=== PATIENT | female | born 1940 | race Caucasian/White ===

== ENCOUNTER → 2024-04-26 11:07 | Outpatient (REF) | payer OTHER, SELFPAY | LOC: MRI 11:07 | PROVIDERS: ATTENDING PHYSICIAN Specialist; FAMILY PHYSICIAN Family Medicine | DX: M51.36 Other intervertebral disc degeneration, lumbar region (principal); M50.10 Cervical disc disorder with radiculopathy, unspecified cervical region | CPT/HCPCS: 72141; 72148 ==

== ENCOUNTER 2025-04-25 10:42 | Emergency (ER) | payer OTHER, SELFPAY ==
[2025-04-25 10:45] VITALS: BMI 19.3
--- NOTE | 2025-04-25 10:53 | ED.GENMED ---
History of Present Illness
General
Chief Complaint: Breathing Problem
Time Seen by Provider: 04/25/25 10:44
History of Present Illness
History of Present Illness:
84-year-old female with history of hypertension, hyperlipidemia, [id number] diabetes, and chronic kidney disease presents to the emergency department for evaluation of hypoxia. Noted to be hypoxic on room air for her staff at [facility]
nursing facility, EMS reports room air saturations in the upper 70s to low 80s. Placed her on 15 L nonrebreather with rapid improvement in overall cyanosis and work of breathing. The patient denies any complaints at this time. No reported recent
fevers, chest pain, or coughing. No leg swelling.
Past History
Past History
ED Past Medical History: Cancer (Ovarian), GERD, HTN, Hypercholesterolemia, NIDDM, Renal failure (No dialysis), Psychiatric (Anxiety, Panic disorder, depression. PTSD) and Other (Arthritis, stomach ulcers, Colitis, Spinal stenosis)
ED Past Surgical History: Appendectomy, (X4), Gynecological (Hysterectomy) and Orthopedic (Tushar hand surgery)
Social History
Tobacco: Former smoker
Alcohol: None
Drug: None
Personal:
Living: assisted living
Employment: Retired
Family History
Family History: Other (Noncontributory)
Review of Systems
Review of Systems
Allergies reviewed?: Yes
All Other Systems: ROS reviewed and negative except as documented in HPI and ROS
Phy Exam
Physical Exam
Physical Exam:
GEN: Well appearing, NAD, WDWN
HEENT: Oral mucosa moist, no scleral icterus
Cardiac: Regular rate and rhythm, no murmur
Lung: No respiratory distress, no tachypnea, lungs clear globally to auscultation
MSK: No gross deformity or injuries, no lower extremity edema
Skin: Good color, no pallor or jaundice, no rashes
Neuro: AO x3, moves all extremities freely
Psych: Calm, cooperative
Scores
Heart Failure Risk
Heart Failure Risk Score: Not Applicable
Course
Orders/Labs/Results
Orders:
Orders
04/25/25 10:45
EKG [Electrocardiogram (*1)] Urgent
Reason for Study: Chest Pain
EKG- Treatment ONCE
CR Chest - 2 Views Urgent
Comment:
Reason For Exam: suspected infection
04/25/25 11:00
COVID-19 Antigen Urgent
Source: Nasal Swab
Complete Blood Count/With Diff Urgent
Comprehensive Metabolic Panel Urgent
Influenza A+B Rapid Molecular Urgent
DALILA Source: Nasal Swab
Specimen Description:
04/25/25 11:46
0.9% Sodium Chloride 1000 ml [Nss] 5,000 ml IV BOLUS
04/25/25 11:55
0.9% Sodium Chloride 500 ml [Nss] 500 ml IV BOLUS
04/25/25 13:47
Tramadol HCl [Ultram] 50 mg PO NOW STA
Abnormal Lab Results
04/25/25 04/25/25
11:00 14:07
MCHC 32.7 L g/dL
(33.0-37.0)
MPV 11.3 H fL
(7.4-10.4)
BUN 39 H mg/dl
(7-17)
Creatinine 1.3 H mg/dL
(0.6-1.0)
Glucose 157 H mg/dl
(70-99)
Calcium 11.4 H mg/dl
(8.4-10.2)
AST 48 H U/L
(14-36)
POC Glucose 130 H mg/dl
(70-99)
04/25/25 11:00
04/25/25 11:00
Vital Signs
Initial and Last Documented VS:
Initial Vital Signs
Pulse Ox
99
04/25/25 10:45
Last Documented Vital Signs
Temp Pulse Resp BP Pulse Ox
98.0 F 109 23 123/77 100
04/25/25 10:46 04/25/25 13:30 04/25/25 13:30 04/25/25 13:00 04/25/25 13:45
MDM/Problems Addressed
MDM/Problems Addressed:
Patient was gradually weaned down on oxygen and ultimately was able to be weaned to room air with no hypoxia. She remained stable in the ED for the majority of his stay with no breathing difficulty however at 1 point did appear to have an anxiety
reaction with tachypnea and hypercapnia however this resolved. Workup was grossly unremarkable
Comment
Comment:
EKG independently interpreted by me shows normal sinus rhythm at a rate of [address] changes concerning for ischemia
*Pulse Oximetry
SaO2: 98
Oxygen Mode of Delivery: Non-rebreather mask
Patient hypoxic: no
*Critical Care Note
Total Time (30-74mins, 75-104mins- exclusive of procedures): Not Applicable
ED Attending Note
-
Portions of this chart may have been created with voice recognition software.� Occasional wrong word or��sound alike� substitutions may have occurred due to the inherent limitations of voice recognition software.
Discharge Plan
Departure
Patient Disposition: Home (Routine Discharge)
Date of Disposition: 04/25/25
Time of Disposition: 12:30
Patient with high blood pressure during this ER visit?: No
Discharge Problem:
Hypoxia
Prescriptions:
No Action
esomeprazole magnesium [Nexium] 40 MG capsule,delayed release(DR/EC)
40 mg PO DAILY@0630
fish oil-dha-epa 1 EACH capsule
1 ea PO DAILY
fenofibrate nanocrystallized 145 MG tablet
145 mg PO HS
cholecalciferol (vitamin D3) 2,000 UNITS tablet
2,000 units PO DAILY
magnesium oxide 400 MG capsule
400 mg PO DAILY
[id number] serr [Osteo Bi-Flex (5-Loxin)] 1 EACH tablet
2 ea PO DAILY
buspirone 5 MG tablet
5 mg PO BIDPRN PRN (Reason: panic)
sumatriptan succinate 50 MG tablet
50 mg PO DAILYPRN PRN (Reason: migraine)
amlodipine 5 MG tablet
5 mg PO DAILY
folic acid 0.4 MG tablet
0.8 mg PO DAILY
acetaminophen [Tylenol Extra Strength] 500 MG tablet
1,000 mg PO Q6HPRN PRN (Reason: mild pain)
ferrous sulfate [FeroSul] 325 MG tablet
325 mg PO DAILY@1100
metoprolol succinate 25 MG tablet extended release 24 hr
25 mg PO HS
duloxetine 60 MG capsule,delayed release(DR/EC)
60 mg PO DAILY
ondansetron HCl [Zofran] 8 MG tablet
8 mg PO DAILYPRN PRN (Reason: nausea)
gabapentin 100 MG capsule
200 mg PO TID
pioglitazone 30 MG tablet
30 mg PO DAILY
multivitamin Tablet
1 tab PO DAILY
buspirone 5 mg Tablet
5 mg PO BID
guaifenesin [Siltussin SA] 100 mg/5 mL Liquid
100 mg PO Q6HPRN PRN (Reason: cough)
repaglinide 0.5 mg Tablet
0.5 mg PO AC
levothyroxine 50 mcg Tablet
50 mcg PO DAILY AT 0700
cefdinir 300 mg capsule
300 mg PO Q12H 4 Days Qty: 8 0RF
azithromycin 250 mg tablet
250 mg PO DAILY 3 Days Qty: 3 0RF
Referrals:
Santiago Lancaster MD [Family Provider, Family Practice]
Interventions
Interventions:
ED- Cardiac Assessment Last Done: 04/25/25 10:45
ED- Pulmonary Assessment Last Done: 04/25/25 10:45
Discharge Date and Time
Print Language: PASHTO
[2025-04-25 11:04] VITALS: BP 123/97
[2025-04-25 11:21] LABS: Hematocrit 37.6 % (37.0-47.0); Hemoglobin 12.3 g/dL (12.0-16.0); Mean Corp Hgb Conc. 32.7 g/dL (33.0-37.0); Mean Corpuscular Volume 89.5 fL (81.0-99.0); Nucleated Red Blood Cells % 0 %; Platelet Count 308 10^3/uL (130-400); Red Cell Dist. Width 13.8 % (11.5-14.5)
[2025-04-25 11:36] LABS: ALT (SGPT) 23 U/L (0-35); AST (SGOT) 48 U/L (14-36); Albumin 4.5 g/dl (3.5-5.0); Alkaline Phosphatase 55 U/L (38-126); Blood Urea Nitrogen 39 mg/dl (7-17); Calcium 11.4 mg/dl (8.4-10.2); Carbon Dioxide 23 mmol/L (22-30); Chloride 106 mmol/L (98-107); Estimated Creatinine Clearance 22 ml/min; Glucose 157 mg/dl (70-99); Potassium 5.0 mmol/L (3.5-5.1); Sodium 139 mmol/L (135-145); Total Protein 7.3 g/dl (6.3-8.2); eGFR 40.55
[2025-04-25 11:37] LABS: COVID-19 Antigen Negative (Negative)
[2025-04-25 12:00] VITALS: BP 126/85
[2025-04-25] MEDS: NSS 500 IV (12:11)
[2025-04-25 13:00] VITALS: BP 123/77
[2025-04-25] MEDS: ULTRAM 50 MG PO (13:53)
[2025-04-25 14:09] LABS: Glucose - Point of Care 130 mg/dl (70-99)
== END 2025-04-25 16:30 | disposition home or self-care (01) ==
LOC: EMR 10:42
PROVIDERS: Physician Assistant; EMERGENCY PHYSICIAN Student in an Organized Health Care Education/Training Program; FAMILY PHYSICIAN Family Medicine
DX: R09.02 Hypoxemia (principal); N18.9 Chronic kidney disease, unspecified; E11.22 Type 2 diabetes mellitus with diabetic chronic kidney disease; Z11.52 Encounter for screening for COVID-19; E78.00 Pure hypercholesterolemia, unspecified; I12.9 Hypertensive chronic kidney disease with stage 1 through stage 4 chronic kidney disease, or unspecified chronic kidney disease; Z87.891 Personal history of nicotine dependence
CPT/HCPCS: 99285; 96360; 71046; 80053; 82962; 85025; 87502; 87811; 93005

== ENCOUNTER 2025-09-08 07:33 | Emergency (ER) | payer OTHER, SELFPAY ==
[2025-09-08 07:44] VITALS: BP 82/66
--- NOTE | 2025-09-08 08:52 | ED.GENMED ---
History of Present Illness
General
Chief Complaint: Fall
Source: patient, ambulance crew and custodial
Exam Limitations: none
Time Seen by Provider: 09/08/25 07:59
Nursing documentation reviewed up to this point in time: agreed with
History of Present Illness
History of Present Illness:
85-year-old female presenting to the emergency department after falling this morning the right side of her face did not lose consciousness denies any significant symptoms at this point other than right-sided head discomfort. Denies any chest pain
shortness of breath.
Past History
Past History
ED Past Medical History: Cancer (Ovarian), GERD, HTN, Hypercholesterolemia, NIDDM, Renal failure (No dialysis), Psychiatric (Anxiety, Panic disorder, depression. PTSD) and Other (Arthritis, stomach ulcers, Colitis, Spinal stenosis)
ED Past Surgical History: Appendectomy, (X4), Gynecological (Hysterectomy) and Orthopedic (Tushar hand surgery)
Social History
Tobacco: Former smoker
Alcohol: None
Drug: None
Personal:
Living: assisted living
Employment: Retired
Family History
Family History: Other (Noncontributory)
Review of Systems
Review of Systems
Allergies reviewed?: Yes
All Other Systems: ROS reviewed and negative except as documented in HPI and ROS
Phy Exam
Physical Exam
Physical Exam:
GENERAL: Alert , in no apparent distress
EYE: pupils equal and reactive
NECK: Supple, no significant adenopathy.
ENT: Superficial abrasion to the right lateral eyebrow o/p clr, mmm.
CARDIAC: Regular rate and rhythm .
LUNGS: Clear breath sounds bilaterally, no acute respiratory distress, no wheezes/rales/rhonchi
ABDOMEN: Soft, without focal tenderness, no r/g, no cvat
NEUROLOGICAL: Alert and oriented, no focal neuro deficits
SKIN: Warm and dry, skin intact.
MUSCULOSKELETAL: No edema, well perfused.
PSYCH: Normal and appropriate interaction.
Course
Orders/Labs/Results
Orders:
Orders
09/08/25 08:32
CT Cervical Spine W/o Iv Contr Urgent
Comment:
Reason For Exam: fall hit head
CT Head W/o Iv Contrast Urgent
Comment:
Reason For Exam: fall hit head
09/08/25 08:55
Ankle, Right 3 view CR [CR Ankle - Right Min 3 Views *] Urgent
Comment:
Reason For Exam: ankle pain after fall
Vital Signs
Initial and Last Documented VS:
Initial Vital Signs
Temp Pulse Resp BP Pulse Ox
97.7 F 103 21 82/66 99
09/08/25 07:44 09/08/25 07:44 09/08/25 07:44 09/08/25 07:44 09/08/25 07:44
Last Documented Vital Signs
Temp Pulse Resp BP Pulse Ox
97.7 F 104 29 137/125 98
09/08/25 07:44 09/08/25 11:00 09/08/25 11:00 09/08/25 10:26 09/08/25 11:00
MDM/Problems Addressed
MDM/Problems Addressed:
85-year-old female presenting after a fall. Abrasion to the right lateral eyebrow region otherwise denies any symptoms at this time other than mild right ankle pain. CT scan without emergent findings x-ray without emergent findings of the ankle.
Patient initially was tachycardic but improved without specific treatment here. She claims she would like to leave at this point feels well. Patient was discharged stable condition. Return precautions given.
*Pulse Oximetry
SaO2: 95
Nasal Cannula flow liters per minute: 3
Patient hypoxic: no (98)
*Critical Care Note
Total Time (30-74mins, 75-104mins- exclusive of procedures): Not Applicable
ED Attending Note
-
Portions of this chart may have been created with voice recognition software.� Occasional wrong word or��sound alike� substitutions may have occurred due to the inherent limitations of voice recognition software.
Discharge Plan
Departure
Patient Disposition: Home (Routine Discharge)
Date of Disposition: 09/08/25
Time of Disposition: 11:32
Patient with high blood pressure during this ER visit?: No
Condition: Good
Covid-19: Not Applicable
Discharge Problem:
Fall
Instructions: Preventing falls in adults
Prescriptions:
No Action
esomeprazole magnesium [Nexium] 40 MG capsule,delayed release(DR/EC)
40 mg PO DAILY
fish oil-dha-epa 1 EACH capsule
1 cap PO DAILY
fenofibrate nanocrystallized 145 MG tablet
145 mg PO DAILY
cholecalciferol (vitamin D3) 2,000 UNITS tablet
2,000 units PO DAILY
magnesium oxide 400 MG capsule
400 mg PO DAILY
amlodipine 5 MG tablet
5 mg PO DAILY
acetaminophen [Tylenol Extra Strength] 500 MG tablet
1,000 mg PO Q6HPRN PRN (Reason: mild pain)
ferrous sulfate [FeroSul] 325 MG tablet
325 mg PO DAILY@1100
duloxetine 60 MG capsule,delayed release(DR/EC)
60 mg PO DAILY
gabapentin 100 MG capsule
200 mg PO TID
pioglitazone 30 MG tablet
30 mg PO DAILY
multivitamin [Daily Value] Tablet
1 tab PO DAILY
buspirone 5 mg Tablet
5 mg PO BID
repaglinide 0.5 mg Tablet
0.5 mg PO AC
levothyroxine 50 mcg Tablet
50 mcg PO DAILY
tramadol-acetaminophen 37.5-325 mg Tablet
1 tab PO DAILYPRN PRN (Reason: moderate pain)
ondansetron HCl [Zofran] 8 mg Tablet
8 mg PO DAILYPRN PRN (Reason: nausea)
sumatriptan succinate [Imitrex] 50 mg Tablet
0 mg PO .COMPLEX
Rx Instructions:
take 1 tab at onset of headache; if no relief may repeat 1 tab after at least 2 hrs; max = 4 tabs/24 hr
guaifenesin [Siltussin SA] 100 mg/5 mL Liquid
100 mg PO Q6HPRN PRN (Reason: cough)
folic acid 1 mg Tablet
1 mg PO DAILY
diphenhydramine-acetaminophen [Acetaminophen PM] 25-500 mg Tablet
1 tab PO HSPRN PRN (Reason: sleep)
metoprolol tartrate 25 mg Tablet
25 mg PO DAILY
Osteo Bi-Flex Triple Strength 750 mg-644 mg- 30 mg-1 mg Tablet
2 tab PO DAILY
Referrals:
Santiago Lancaster MD [Family Provider, Family Practice]
Activity Restrictions/Additional Instructions:
You came to the emergency department today after a fall. Here your reassuring assessment with normal head CT and ankle x-ray. You had Dermabond placed on your cut to the right side of your forehead. Please allow this to follow-up over the next
week or so. Return for any worsening, new or concerning symptoms.
Interventions
Interventions:
*Risk Screen - Suicide Last Done: 09/08/25 07:44
*General Assessment Last Done: 09/08/25 07:44
*Neglect/Abuse Screening Last Done: 09/08/25 07:44
*ED COVID-19 Vaccine History Last Done: 09/08/25 08:01
*ED Influenza Vaccine History Last Done: 09/08/25 08:01
[facility] Fall Risk Assessment Tool Last Done: 09/08/25 10:12
ED-Musculoskeletal Assessment Last Done: 09/08/25 08:01
ED- Neurological Assessment Last Done: 09/08/25 08:01
ED-Skin Assessment Last Done: 09/08/25 08:01
Discharge Date and Time
Print Language: CROATIAN
[2025-09-08 10:26] VITALS: BP 137/125
[2025-09-08 11:01] VITALS: BP 115/79
[2025-09-08 12:00] VITALS: BP 105/60
== END 2025-09-08 13:09 | disposition home or self-care (01) ==
LOC: EMR 07:33
PROVIDERS: EMERGENCY PHYSICIAN Student in an Organized Health Care Education/Training Program; FAMILY PHYSICIAN Family Medicine
DX: Z04.3 Encounter for examination and observation following other accident (principal); W19.XXXA Unspecified fall, initial encounter; Y92.129 Unspecified place in nursing home as the place of occurrence of the external cause; E11.9 Type 2 diabetes mellitus without complications; I10 Essential (primary) hypertension; E78.00 Pure hypercholesterolemia, unspecified; K21.9 Gastro-esophageal reflux disease without esophagitis; F41.9 Anxiety disorder, unspecified; F32.A Depression, unspecified; F41.0 Panic disorder [episodic paroxysmal anxiety]; F43.10 Post-traumatic stress disorder, unspecified; M19.90 Unspecified osteoarthritis, unspecified site; M48.00 Spinal stenosis, site unspecified; Z79.84 Long term (current) use of oral hypoglycemic drugs; Z85.43 Personal history of malignant neoplasm of ovary; Z90.710 Acquired absence of both cervix and uterus; Z87.891 Personal history of nicotine dependence
CPT/HCPCS: 99284; 70450; 72125; 73610